=== PATIENT | female | born 1940 | race Caucasian/White ===

== ENCOUNTER → 2020-10-30 | Outpatient (CLI) | payer MEDICARE, OTHER ==
[~2020-10-30] MED LIST: ACET325T12 PO; ASCO100T5 PO; ASCO500C PO; ASPI-485 PO; ATOR10TA PO; CHOL10002 PO; CIPR500T86 PO; CLOP75TA PO; COLE1TAB2 PO; ENAL10TA8 PO; ENAL5TAB10 PO; GARL1CAP3 PO; MAGN400T9 PO; METF500T17 PO; MULT-678 PO; PANT40TA3 PO; POTA20TA14 PO; PSYL0.5242 PO; SULF1TAB24 PO; TRAM50TA PO; VITA-48 PO; VITA80003 PO; [UNRECOGNIZED DRUG - CODE] PO; [UNRECOGNIZED DRUG - CODE] PO
[2020-10-30 06:03] LABS: BASOPHIL % 0.4 % (0.0-0.2); EOSINOPHIL # 0.2 10^3/uL (0.0-0.2); EOSINOPHIL % 1.9 % (0.0-5.0); LYMPHOCYTES # 1.82 10^3/uL1 (1.0-4.8); LYMPHOCYTES % 20.2 % (24.0-44.0); MEAN CORP HGB 29.8 pg (26-34); MONOCYTES # 0.5 10^3/uL (0.3-0.8); MONOCYTES % 5.2 % (5.0-12.0); NEUTROPHIL # 6.4 10^3/uL (1.8-7.7); NEUTROPHILS % 71.3 % (41.0-85.0); PLATELET COUNT 228 10^3/uL (150-400); RED CELL DISTRIBUTION WIDTH 13.8 % (11.5-14.5)
[2020-10-30 06:24] LABS: CALCIUM 8.6 mg/dL (8.4-10.5); CARBON DIOXIDE 27.8 mmol/L (20.0-32)
== END | disposition home or self-care (01) ==
LOC: NPLAB 02:15
PROVIDERS: ATTEND Family Medicine
DX: A41.9 Sepsis, unspecified organism (principal); I10 Essential (primary) hypertension; Z79.899 Other long term (current) drug therapy
CPT/HCPCS: 36415; 80053; 80061; 82306; 84439; 84443; 85025

== ENCOUNTER → 2020-10-31 | Outpatient (CLI) | payer MEDICARE, OTHER | END | disposition home or self-care (01) | LOC: NPLAB 01:45 | PROVIDERS: ATTEND Family Medicine | DX: Z51.81 Encounter for therapeutic drug level monitoring (principal) | CPT/HCPCS: 36415; 80202 ==

== ENCOUNTER → 2020-11-03 | Outpatient (CLI) | payer MEDICARE, OTHER | END | disposition home or self-care (01) | LOC: NPLAB 18:35 | PROVIDERS: ATTEND Family Medicine | DX: A41.9 Sepsis, unspecified organism (principal) | CPT/HCPCS: 80202 ==

== ENCOUNTER → 2020-11-06 | Outpatient (CLI) | payer MEDICARE, OTHER | END | disposition home or self-care (01) | LOC: NPLAB 00:15 | PROVIDERS: ATTEND Family Medicine | DX: Z51.81 Encounter for therapeutic drug level monitoring (principal); S98.1 Traumatic amputation of one toe; Z79.899 Other long term (current) drug therapy; X58.XXXS Exposure to other specified factors, sequela | CPT/HCPCS: 36415; 80202 ==

== ENCOUNTER → 2020-11-09 | Outpatient (CLI) | payer MEDICARE, OTHER ==
[2020-11-09 19:31] LABS: MEAN CORP HGB 29.5 pg (26-34); RED CELL DISTRIBUTION WIDTH 13.8 % (11.5-14.5)
[2020-11-09 19:47] LABS: CALCIUM 9.6 mg/dL (8.4-10.5); CARBON DIOXIDE 27.1 mmol/L (20.0-32)
== END | disposition home or self-care (01) ==
LOC: NPLAB 18:55
PROVIDERS: ATTEND Family Medicine
DX: A41.9 Sepsis, unspecified organism (principal)
CPT/HCPCS: 80053; 80202; 85027

== ENCOUNTER → 2020-11-10 | Outpatient (CLI) | payer MEDICARE, OTHER | END | disposition home or self-care (01) | LOC: NPLAB 17:00 | PROVIDERS: ATTEND Family Medicine | DX: A41.9 Sepsis, unspecified organism (principal) | CPT/HCPCS: 80202 ==

== ENCOUNTER → 2020-11-11 | Outpatient (CLI) | payer MEDICARE, OTHER | END | disposition home or self-care (01) | LOC: NPLAB 17:00 | PROVIDERS: ATTEND Family Medicine | DX: Z51.81 Encounter for therapeutic drug level monitoring (principal) | CPT/HCPCS: 80202 ==

== ENCOUNTER → 2020-11-12 | Outpatient (CLI) | payer MEDICARE, OTHER | END | disposition home or self-care (01) | LOC: NPLAB 17:50 | PROVIDERS: ATTEND Family Medicine | DX: A41.9 Sepsis, unspecified organism (principal) | CPT/HCPCS: 36415; 80202 ==

== ENCOUNTER → 2020-11-16 | Outpatient (CLI) | payer MEDICARE, OTHER | END | disposition home or self-care (01) | LOC: NPLAB 19:44 | PROVIDERS: ATTEND Family Medicine | DX: Z51.81 Encounter for therapeutic drug level monitoring (principal) | CPT/HCPCS: 80202 ==

== ENCOUNTER → 2020-11-16 | Outpatient (CLI) | payer MEDICARE, OTHER ==
[2020-11-16 08:39] LABS: CALCIUM 8.9 mg/dL (8.4-10.5)
[2020-11-16 08:40] LABS: BASOPHIL % 0.6 % (0.0-0.2); EOSINOPHIL # 0.1 10^3/uL (0.0-0.2); EOSINOPHIL % 2.6 % (0.0-5.0); LYMPHOCYTES # 1.32 10^3/uL1 (1.0-4.8); LYMPHOCYTES % 24.8 % (24.0-44.0); MEAN CORP HGB 29.8 pg (26-34); MONOCYTES # 0.4 10^3/uL (0.3-0.8); NEUTROPHIL # 3.4 10^3/uL (1.8-7.7); NEUTROPHILS % 64.4 % (41.0-85.0); RED CELL DISTRIBUTION WIDTH 13.6 % (11.5-14.5)
== END | disposition home or self-care (01) ==
LOC: NPLAB 05:30
PROVIDERS: ATTEND Family Medicine
DX: S98.1 Traumatic amputation of one toe (principal); E11.9 Type 2 diabetes mellitus without complications; X58.XXXS Exposure to other specified factors, sequela
CPT/HCPCS: 36415; 80053; 85025

== ENCOUNTER → 2020-11-17 | Outpatient (CLI) | payer MEDICARE, OTHER | END | disposition home or self-care (01) | LOC: NPLAB 22:12 | PROVIDERS: ATTEND Family Medicine | DX: S98.1 Traumatic amputation of one toe (principal); X58.XXXS Exposure to other specified factors, sequela | CPT/HCPCS: 80202 ==

== ENCOUNTER → 2020-11-18 | Outpatient (CLI) | payer MEDICARE, OTHER | END | disposition home or self-care (01) | LOC: NPLAB 22:19 | PROVIDERS: ATTEND Family Medicine | DX: A41.9 Sepsis, unspecified organism (principal) | CPT/HCPCS: 80202 ==

== ENCOUNTER → 2020-11-19 | Outpatient (CLI) | payer MEDICARE, OTHER | END | disposition home or self-care (01) | LOC: NPLAB 10:45 | PROVIDERS: ATTEND Family Medicine | DX: Z51.81 Encounter for therapeutic drug level monitoring (principal) | CPT/HCPCS: 36415; 80202 ==

== ENCOUNTER → 2020-11-24 | Outpatient (CLI) | payer MEDICARE, OTHER ==
[2020-11-24 06:31] LABS: BASOPHIL % 0.4 % (0.0-0.2); EOSINOPHIL # 0.2 10^3/uL (0.0-0.2); EOSINOPHIL % 2.1 % (0.0-5.0); LYMPHOCYTES # 1.48 10^3/uL1 (1.0-4.8); LYMPHOCYTES % 19.8 % (24.0-44.0); MEAN CORP HGB 29.9 pg (26-34); MONOCYTES # 0.5 10^3/uL (0.3-0.8); NEUTROPHIL # 5.3 10^3/uL (1.8-7.7); NEUTROPHILS % 70.6 % (41.0-85.0); PLATELET COUNT 171 10^3/uL (150-400); RED CELL DISTRIBUTION WIDTH 13.3 % (11.5-14.5)
[2020-11-24 06:41] LABS: CALCIUM 9.4 mg/dL (8.4-10.5)
== END | disposition home or self-care (01) ==
LOC: NPLAB 04:33
PROVIDERS: ATTEND Family Medicine
DX: S98.1 Traumatic amputation of one toe (principal); A49.9 Bacterial infection, unspecified; X58.XXXA Exposure to other specified factors, initial encounter; Y92.89 Other specified places as the place of occurrence of the external cause; Y93.89 Activity, other specified; Y99.8 Other external cause status
CPT/HCPCS: 36415; 80053; 85025

== ENCOUNTER 2020-12-02 07:12 | Day surgery (SDC) | payer MEDICARE, OTHER ==
[2020-11-30 14:59] LABS: BASOPHIL # 0.1 10^3/uL (0.0-0.1); BASOPHIL % 0.6 % (0.0-0.2); EOSINOPHIL # 0.1 10^3/uL (0.0-0.2); EOSINOPHIL % 1.5 % (0.0-5.0); LYMPHOCYTES # 1.42 10^3/uL1 (1.0-4.8); LYMPHOCYTES % 17.8 % (24.0-44.0); MEAN CORP HGB 29.4 pg (26-34); MONOCYTES # 0.5 10^3/uL (0.3-0.8); MONOCYTES % 6.4 % (5.0-12.0); NEUTROPHIL # 5.9 10^3/uL (1.8-7.7); NEUTROPHILS % 73.6 % (41.0-85.0); PLATELET COUNT 215 10^3/uL (150-400); RED CELL DISTRIBUTION WIDTH 13.3 % (11.5-14.5)
[2020-11-30 18:55] LABS: CALCIUM 9.3 mg/dL (8.4-10.5); CARBON DIOXIDE 25.5 mmol/L (20.0-32)
[2020-12-02] VITALS (16 sets, daily range): BP systolic 104–135; BP diastolic 41–80
[~2020-12-02] VITALS: Ht 165.1 cm; Wt 59.0 kg
[~2020-12-02 07:12] MED LIST changes: +0.92DISP2 IJ; +NS 1000ML 1,000 ML ONE; +PSYL0.5214 PO
[2020-12-02] MEDS ORDERED: SODIUM CHLORIDE IRR BOTTLE IR ONE (07:13)
[2020-12-02] MEDS ORDERED: NS 3000ML IRR IR ONE (07:13)
[2020-12-02] MEDS ORDERED: DIPRIVAN IV ONE (07:22)
[2020-12-02] MEDS ORDERED: SUBLIMAZE ONE (07:25)
[2020-12-02] MEDS ORDERED: VERSED ONE (07:26)
[2020-12-02] MEDS ORDERED: DECADRON ONE (07:28)
[2020-12-02] MEDS ORDERED: ZOFRAN ONE (07:30)
[2020-12-02] MEDS ORDERED: EPHEDRINE SULFATE ONE (07:39)
[2020-12-02] MEDS ORDERED: NS 1000ML 1,000 ML IV SCH (08:00)
[2020-12-02] MEDS ORDERED: KETAMINE HCL-Non-Preferred ONE (08:01)
[2020-12-02] MEDS ORDERED: VANCOMYCIN HCL 1 GM ONE (08:07)
[2020-12-02] MEDS ORDERED: NS 250ML 250 ML IV ONE (08:07)
--- NOTE | 2020-12-02 09:14 | OPH ---
DATE OF SURGERY: 12/02/2020 PREOPERATIVE DIAGNOSIS: Right foot wound dehiscence. POSTOPERATIVE DIAGNOSIS: Right foot wound dehiscence. OPERATIVE PROCEDURE: 1. Irrigation and debridement of skin and subcutaneous tissue using a #10 blade, right foot. 2. Secondary closure of right foot wound. SURGEON: Kadeem Hayden MD ANESTHESIA: IV sedation. TOURNIQUET TIME: 17 minutes at 300 mmHg. DRAINS: None. BLOOD LOSS: 10 mL. DESCRIPTION OF INDICATIONS: The patient is a 80-year-old diabetic, who approximately 3-4 weeks ago had an amputation of the right great toe and the second toe for osteomyelitis. The patient's wound has dehisced over the last week and now she has a wound over the dorsal portion of her foot on the medial side that is approximately 2 cm in length and 1 cm in width and 2 cm in depth. The wound care department has been doing local wound care. The patient has no fever or chills. There is no purulent drainage. Her wound has healthy granulation tissue and therefore, she is being taken to the operating room for the above procedure. DESCRIPTION OF PROCEDURE: The patient was placed on the operating table in the supine position. Some IV ketamine was given. The patient had a well-padded tourniquet placed around the calf. The patient then had the right lower extremity sterilely prepped and draped. The patient had the leg elevated for 60 seconds and the tourniquet was inflated to 300 mmHg. The patient had the wound aggressively debrided using the Versajet system. The wounds were debrided back to bleeding surfaces. Using a #10 blade, the skin edges were debrided full thickness of skin and subcutaneous tissue on both sides of the wound. The wound was again debrided deeply with the Versajet system. At that point, the patient's wound was irrigated with saline. We then closed the wound loosely with some #2 Prolene suture in an interrupted manner. A compressive dressing was applied consisting of Adaptic, 4 x 4s, ABD pad, cast padding and León wrap. The patient was sent to recovery in stable condition. Kadeem Hayden MD DR: MARIANNA/casey JOB# [id number]
== END 2020-12-02 10:45 ==
LOC: SURG 07:12
PROVIDERS: ATTEND Orthopaedic Surgery
DX: T87.81 Dehiscence of amputation stump (principal); I10 Essential (primary) hypertension; Z88.1 Allergy status to other antibiotic agents; Z88.2 Allergy status to sulfonamides; Z83.3 Family history of diabetes mellitus; Z90.710 Acquired absence of both cervix and uterus; Z98.890 Other specified postprocedural states; Z95.5 Presence of coronary angioplasty implant and graft; Z79.84 Long term (current) use of oral hypoglycemic drugs; Z79.899 Other long term (current) drug therapy; Y83.8 Other surgical procedures as the cause of abnormal reaction of the patient, or of later complication, without mention of misadventure at the time of the procedure
CPT/HCPCS: 11042; 27884; 36415; 80053; 82948 ×2; 85025; A4217 ×2; J1100; J2250; J2405; J3010; J3370; J3490 ×2; J7030; J7050

== ENCOUNTER → 2021-05-26 | Outpatient (CLI) | payer MEDICARE, OTHER ==
[~2021-05-26] MED LIST changes: -NS 1000ML 1,000 ML ONE
--- NOTE | 2021-05-26 15:24 | DIREP ---
PROCEDURE:Digital Screening Mammogram TECHNIQUE:MLO, CC, and XCCL digital images of each breast are provided. Computer Assisted Detection (CAD) was utilized. COMPARISON:[facility], , MAMMOGRAM SCREENING, 04/18/2011, 12:03 PM. [facility], MAMMO BILATERAL SCREENING, 06/17/2019, 09:31 AM. INDICATIONS:SCREENING BREAST COMPOSITION:Scattered areas fibroglandular density. FINDINGS:There are no grouped microcalcifications, masses, or architectural distortions to suggest malignancy. There is no significant change as compared with the previous examination(s). IMPRESSION:No mammographic evidence of malignancy. RECOMMENDATIONS:Routine Screening Mammography per [employer] guidelines. OVERALL FINAL ASSESSMENT:BI-RADS 1 - Negative Mammogram Note: This facility participates in a mammography screening patient reminder system. Dictated by: Audie Hyatt M.D. on 05/26/2021 at 03:21 PM
== END | disposition home or self-care (01) ==
LOC: RAD 14:02
PROVIDERS: ATTEND Nurse Practitioner Family
DX: Z12.31 Encounter for screening mammogram for malignant neoplasm of breast (principal)
CPT/HCPCS: 77067

== ENCOUNTER → 2021-06-07 | Outpatient (CLI) | payer MEDICARE, OTHER ==
[2021-06-07 17:56] LABS: CALCIUM 9.2 mg/dL (8.4-10.5); CARBON DIOXIDE 26.1 mmol/L (20.0-32)
== END | disposition home or self-care (01) ==
LOC: NPLAB 16:32
PROVIDERS: ATTEND Nurse Practitioner Family
DX: E11.9 Type 2 diabetes mellitus without complications (principal); E83.42 Hypomagnesemia
CPT/HCPCS: 36415; 80048; 83735

== ENCOUNTER → 2022-01-16 | Outpatient (CLI) | payer MEDICARE, OTHER ==
[~2022-01-16] MED LIST changes: -CHOL10002 PO; +CHOL10007 PO; +MAGN400T51 PO; -MAGN400T9 PO; +POTA-148 PO; -POTA20TA14 PO
[2022-01-16 16:19] LABS: BASOPHIL % 0.4 % (0.0-0.2); EOSINOPHIL # 0.1 10^3/uL (0.0-0.2); EOSINOPHIL % 1.2 % (0.0-5.0); LYMPHOCYTES # 1.99 10^3/uL1 (1.0-4.8); LYMPHOCYTES % 20.9 % (24.0-44.0); MEAN CORP HGB 27.6 pg (26-34); MONOCYTES # 0.4 10^3/uL (0.3-0.8); MONOCYTES % 4.6 % (5.0-12.0); NEUTROPHIL # 6.9 10^3/uL (1.8-7.7); NEUTROPHILS % 72.6 % (41.0-85.0); PLATELET COUNT 271 10^3/uL (150-400); RED CELL DISTRIBUTION WIDTH 14.1 % (11.5-14.5)
[2022-01-16 16:33] LABS: CARBON DIOXIDE 25.2 mmol/L (20.0-32)
== END | disposition home or self-care (01) ==
LOC: NPLAB 15:27
PROVIDERS: ATTEND Nurse Practitioner Family
DX: I11.9 Hypertensive heart disease without heart failure (principal); E11.65 Type 2 diabetes mellitus with hyperglycemia
CPT/HCPCS: 80053; 83036; 85025

== ENCOUNTER → 2022-02-07 | Outpatient (CLI) | payer MEDICARE, OTHER ==
[2022-02-07 13:48] LABS: MEAN CORP HGB 27.4 pg (26-34); RED CELL DISTRIBUTION WIDTH 14.5 % (11.5-14.5)
[2022-02-07 13:52] LABS: CARBON DIOXIDE 24.8 mmol/L (20.0-32)
== END | disposition home or self-care (01) ==
LOC: NPLAB 11:43
PROVIDERS: ATTEND Internal Medicine
DX: I11.9 Hypertensive heart disease without heart failure (principal); E11.65 Type 2 diabetes mellitus with hyperglycemia; E11.40 Type 2 diabetes mellitus with diabetic neuropathy, unspecified
CPT/HCPCS: 36415; 80048; 83036; 85027

== ENCOUNTER → 2022-06-12 | Outpatient (CLI) | payer MEDICARE, OTHER ==
[~2022-06-12] MED LIST changes: +METAMUCIL0.52 GM PO; -PSYL0.5214 PO
[2022-06-12 13:24] LABS: BASOPHIL % 0.5 % (0.0-0.2); EOSINOPHIL # 0.1 10^3/uL (0.0-0.2); EOSINOPHIL % 1.7 % (0.0-5.0); LYMPHOCYTES # 2.32 10^3/uL1 (1.0-4.8); LYMPHOCYTES % 35.4 % (24.0-44.0); MEAN CORP HGB 27.6 pg (26-34); MONOCYTES # 0.5 10^3/uL (0.3-0.8); MONOCYTES % 6.9 % (5.0-12.0); NEUTROPHIL # 3.6 10^3/uL (1.8-7.7); NEUTROPHILS % 55.3 % (41.0-85.0); RED CELL DISTRIBUTION WIDTH 15.2 % (11.5-14.5)
[2022-06-12 13:50] LABS: CARBON DIOXIDE 28.6 mmol/L (20.0-32)
== END | disposition home or self-care (01) ==
LOC: NPLAB 11:54
PROVIDERS: ATTEND Family Medicine
DX: Z79.899 Other long term (current) drug therapy (principal)
CPT/HCPCS: 80053; 80061; 82306; 83036; 84443; 85025

== ENCOUNTER → 2022-07-19 | Outpatient (CLI) | payer MEDICARE, OTHER ==
[2022-07-19 13:27] LABS: BILIRUBIN,URINE NEGATIVE (NEGATIVE); UROBILINOGEN,URINE 0.2 E.U./dL (0.2)
== END | disposition home or self-care (01) ==
LOC: NPLAB 12:55
PROVIDERS: ATTEND Family Medicine
DX: Z79.899 Other long term (current) drug therapy (principal)
CPT/HCPCS: 81001; 87077; 87086; 87186

== ENCOUNTER → 2022-07-27 | Outpatient (CLI) | payer MEDICARE ==
[~2022-07-27] MED LIST changes: -0.92DISP2 IJ; +[UNRECOGNIZED DRUG - OTHER] IJ
== END | disposition home or self-care (01) ==
LOC: NPLAB 07:21
PROVIDERS: ATTEND Family Medicine
DX: N18.30 Chronic kidney disease, stage 3 unspecified (principal); R33.9 Retention of urine, unspecified; N32.9 Bladder disorder, unspecified
CPT/HCPCS: 87086